=== PATIENT | male | born 1960 | race Caucasian/White ===

== ENCOUNTER → 2016-08-11 | Outpatient (CLI) | payer OTHER ==
[~2016-08-11] MED LIST: ALPRAZOLAM0.5 M3 PO; AMIODARONE HCL200 MG PO; AMIODARONE200 MG PO; AMOX TR-K CLV 875-12; ANAPROX DS550 MG PO; ANTIVERT/2525 MG PO; ASCRIPTIN ENTER81 MG PO; ASPI-COR81 MG PO; ASPIR 8181 MG PO; ASPIRIN325 MG PO; ASPIRIN81 M1 PO; B COMPLEX1 CAP PO; B COMPLEX1 TA2 PO; B12100 MC1; CATALYN; CLONAZEPAM0.5 MG PO; COLACE100 MG PO; COUMADIN0.5 MG PO; CREON 60,000U/1 CAP PO; Cimetidine300 MG PO; EMPIRIN325 MG PO; ESOMEPRAZOLE MA20 MG PO; FLEXERIL5 MG PO; FUROSEMIDE40 MG PO; HEPARIN5000 UNIT/ SC; HYDROCODONE BIT1 T11 PO; KEFTAB500 MG PO; KELP PO; KLONOPIN0.5 MG PO; LUTEIN20 M1 PO; METOPROLOL SUC100 M1 PO; METOPROLOL SUCC50 M1 PO; MIRTAZAPINE30 MG PO; MOTRIN800 MG PO; MULTIVITAMIN; MULTIVITAMIN1 CTB PO; NEXIUM40 MG PO; NORCO 325 MG-51 TAB PO; OMEPRAZOLE DR20 M1 PO; OMEPRAZOLE DR20 MG PO; PRISTIQ50 MG PO; SEROQUEL100 MG PO; SIMVASTATIN20 MG PO; Senokot1 TAB PO; TOPROL XL100 MG PO; TRAZADONE HYDR100 MG PO; VICODIN 5/500 505 MG PO; VICODIN 500 MG-1 TAB PO; VITAMIN B12100 MCG PO; VITAMIN B121000 MC2 PO; VITAMIN D; VITAMIN D5000 I2 PO; ZOLPIDEM5 MG PO; [UNRECOGNIZED DRUG - OTHER] PO
[2016-08-12 06:37] LABS: TOTAL PROTEIN, SERUM 6.1 g/dL (6.0-8.5)
[2016-08-13 15:10] LABS: A/G RATIO 1.4 (0.7-1.7); ALBUMIN 3.6 g/dL (2.9-4.4); ALBUMIN, URINE 13.8 % (.); ALPHA-1-GLOBULIN 0.2 g/dL (0.0-0.4); BETA GLOBULIN 0.9 g/dL (0.7-1.3); GAMMA GLOBULIN 0.8 g/dL (0.4-1.8); GAMMA GLOBULIN, URINE 25.5 % (.); GLOBULIN, TOTAL 2.5 g/dL (2.2-3.9); M-SPIKE Not Observed g/dL (Not Observed); M-SPIKE, % Not Observed % (Not Observed); PROTEIN,TOTAL - URINE RANDOM <4.0 mg/dL (Not Estab.)
== END | disposition home or self-care (01) ==
LOC: LAB 10:18
PROVIDERS: Internal Medicine Hematology & Oncology
DX: D69.6 Thrombocytopenia, unspecified (principal)

== ENCOUNTER 2016-10-19 12:26 | Inpatient (IN) | payer OTHER ==
[~2016-10-19] VITALS: Ht 185.4 cm; Wt 139.8 kg
[2016-10-19 12:41] VITALS: BP 112/58
[2016-10-19 12:50] VITALS: BP 105/62
[2016-10-19 13:08] LABS: BASO % 0.3 % (0.0-1.0); EOS # 0.1 10*3/uL (0.0-0.4); EOS % 2.1 % (1.0-4.0); HEMATOCRIT 41.3 % (42.0-52.0); HEMOGLOBIN 13.9 g/dl (14.0-18.0); LYMPH # 0.9 10*3/uL (1.3-4.4); LYMPH % 15.4 % (27.0-41.0); MEAN CORPUSCULAR HGB 31.3 pg (27.0-31.0); MEAN CORPUSCULAR HGB CONC 33.7 g/dl (33.0-37.0); MEAN PLATELET VOLUME 10.9 fl (9.6-12.3); MONO # 0.3 10*3/uL (0.1-1.0); MONO % 5.6 % (3.0-9.0); NEUT # 4.4 10*3/uL (2.3-7.9); NEUT % 75.9 % (47.0-73.0); PLATELET COUNT AUTOMATED 123 10*3/uL (130-400); RED BLOOD COUNT 4.44 10*6/uL (4.50-5.90); RED CELL DISTRI WIDTH 12.7 % (0-14.5); WHITE BLOOD COUNT 5.7 10*3/uL (4.8-10.8)
[2016-10-19 13:17] LABS: PROTHROMBIN TIME 10.1 SECONDS (9.0-12.4)
[2016-10-19 13:24] LABS: ALBUMIN 3.3 gm/dl (3.1-4.5); ALKALINE PHOSPHATASE 48 U/L (45-117); BILIRUBIN, TOTAL 0.5 mg/dl (0.2-1.0); BUN 26 mg/dl (7-24); C-REACTIVE PROTEIN 0.41 MG/DL (0-0.3); CARBON DIOXIDE 25 mmol/L (21-32); CHLORIDE 110 mmol/L (98-107); CPK 126 U/L (39-308); EST GLOM FILT AFRICAN AMERICAN > 60 ml/min; GLUCOSE 126 mg/dL (65-99); MAGNESIUM 1.9 mg/dL (1.5-2.1); SGOT/AST 12 IU/L (3-35); SGPT/ALT 20 U/L (12-78); SODIUM 142 mmol/L (136-145)
[2016-10-19 13:33] VITALS: BP 106/61
[2016-10-19 13:43] LABS: CKMB 5.7 ng/ml (0.5-3.6); TROPONIN I < 0.015 ng/ml (<0.045)
[2016-10-19 16:15] VITALS: BP 124/77
[2016-10-19] MEDS ORDERED: POTASSIUM CHLO20 ME3 PO (16:44)
[2016-10-19] MEDS ORDERED: CREON 3000 PO (17:12)
[2016-10-19] MEDS ORDERED: CREON 120000 U-1 ECC PO (18:02)
[2016-10-19 18:14] LABS: BILIRUBIN NEGATIVE (NEGATIVE); BLOOD NEGATIVE (NEGATIVE); CLARITY SL CLOUDY (CLEAR); COLOR YELLOW (YELLOW); GLUCOSE NEGATIVE (NEGATIVE); KETONE NEGATIVE (NEGATIVE); LEUKO ESTERASE NEGATIVE (NEGATIVE); NITRITE NEGATIVE (NEGATIVE); PH 5.5 (5.0-9.0); PROTEIN NEGATIVE (NEGATIVE); SPECIFIC GRAVITY 1.015 (1.005-1.030)
[2016-10-19 18:19] LABS: BACTERIA 1+; EPITHELIAL CELLS 0-2; URINE REFLEX COMMENT NO (NO); WBC 0-2 wbc/hpf (0-5)
[2016-10-19 20:00] VITALS: BP 117/74
[2016-10-19] MEDS ORDERED: XANAX1 MG PO (21:50)
[2016-10-19] MEDS ORDERED: XANAX0.5 MG PO (21:50)
[2016-10-20] VITALS: BP 115/62
[2016-10-20 07:29] LABS: BASO % 0.2 % (0.0-1.0); EOS # 0.1 10*3/uL (0.0-0.4); EOS % 2.9 % (1.0-4.0); HEMATOCRIT 40.4 % (42.0-52.0); HEMOGLOBIN 13.5 g/dl (14.0-18.0); LYMPH # 0.7 10*3/uL (1.3-4.4); LYMPH % 15.1 % (27.0-41.0); MEAN CELL VOLUME 95.7 fl (80.0-94.0); MEAN CORPUSCULAR HGB CONC 33.4 g/dl (33.0-37.0); MEAN PLATELET VOLUME 10.9 fl (9.6-12.3); MONO # 0.3 10*3/uL (0.1-1.0); MONO % 7.2 % (3.0-9.0); NEUT # 3.3 10*3/uL (2.3-7.9); NEUT % 74.4 % (47.0-73.0); PLATELET COUNT AUTOMATED 101 10*3/uL (130-400); RED BLOOD COUNT 4.22 10*6/uL (4.50-5.90); RED CELL DISTRI WIDTH 12.7 % (0-14.5); WHITE BLOOD COUNT 4.4 10*3/uL (4.8-10.8)
[2016-10-20 07:38] LABS: BUN 20 mg/dl (7-24); CARBON DIOXIDE 29 mmol/L (21-32); CHLORIDE 111 mmol/L (98-107); EST GLOM FILT AFRICAN AMERICAN > 60 ml/min; GLUCOSE 119 mg/dL (65-99); SODIUM 145 mmol/L (136-145)
[2016-10-20 08:00] VITALS: BP 160/64
[2016-10-20 12:00] VITALS: BP 122/73
[2016-10-20 16:00] VITALS: BP 132/80
[2016-10-20 20:00] VITALS: BP 130/68
[2016-10-21] VITALS: BP 134/64
[2016-10-21] MEDS ORDERED: CREON 120000 U-1 ECC PO (06:36)
[2016-10-21 08:00] VITALS: BP 116/54
== END 2016-10-21 14:05 | disposition home or self-care (01) | DRG 312 ==
LOC: ED 12:26 → 4E 14:57 → EDHOLD 14:57 → 4E 15:42
PROVIDERS: Emergency Medicine; Internal Medicine
DX: R55 Syncope and collapse (principal); K86.1 Other chronic pancreatitis; I10 Essential (primary) hypertension; K90.9 Intestinal malabsorption, unspecified; R19.7 Diarrhea, unspecified; G89.29 Other chronic pain; M54.9 Dorsalgia, unspecified; R00.8 Other abnormalities of heart beat; I49.8 Other specified cardiac arrhythmias; E78.5 Hyperlipidemia, unspecified; E86.0 Dehydration; R42 Dizziness and giddiness; Z84.1 Family history of disorders of kidney and ureter

== ENCOUNTER → 2016-11-07 | Outpatient (CLI) | payer OTHER ==
[~2016-11-07] MED LIST changes: +CREON 120000 U-1 ECC PO; +CREON 3000 PO; +POTASSIUM CHLO20 ME3 PO; +XANAX0.5 MG PO; +XANAX1 MG PO
== END | disposition home or self-care (01) ==
LOC: MRI 07:54
DX: M48.06 Spinal stenosis, lumbar region (principal)

== ENCOUNTER → 2016-11-14 | Outpatient (CLI) | payer OTHER ==
[2016-11-14 10:52] LABS: BASO % 0.2 % (0.0-1.0); EOS # 0.1 10*3/uL (0.0-0.4); EOS % 2.7 % (1.0-4.0); HEMATOCRIT 44.2 % (42.0-52.0); HEMOGLOBIN 14.6 g/dl (14.0-18.0); LYMPH # 0.8 10*3/uL (1.3-4.4); MEAN CELL VOLUME 95.9 fl (80.0-94.0); MEAN CORPUSCULAR HGB 31.7 pg (27.0-31.0); MEAN PLATELET VOLUME 10.6 fl (9.6-12.3); MONO # 0.3 10*3/uL (0.1-1.0); MONO % 6.3 % (3.0-9.0); NEUT # 3.5 10*3/uL (2.3-7.9); NEUT % 73.6 % (47.0-73.0); PLATELET COUNT AUTOMATED 131 10*3/uL (130-400); RED BLOOD COUNT 4.61 10*6/uL (4.50-5.90); RED CELL DISTRI WIDTH 12.6 % (0-14.5); WHITE BLOOD COUNT 4.8 10*3/uL (4.8-10.8)
[2016-11-14 11:26] LABS: ALBUMIN 3.4 gm/dl (3.1-4.5); ALKALINE PHOSPHATASE 52 U/L (45-117); BILIRUBIN, TOTAL 0.7 mg/dl (0.2-1.0); BUN 19 mg/dl (7-24); CARBON DIOXIDE 32 mmol/L (21-32); CHLORIDE 109 mmol/L (98-107); EST GLOM FILT AFRICAN AMERICAN > 60 ml/min; GLUCOSE 95 mg/dL (65-99); POTASSIUM 4.6 mmol/L (3.5-5.1); SGOT/AST 11 IU/L (3-35); SGPT/ALT 18 U/L (12-78); SODIUM 144 mmol/L (136-145); TOTAL PROTEIN 6.3 gm/dL (6.4-8.2)
== END | disposition home or self-care (01) ==
LOC: LAB 10:30
PROVIDERS: Urology
DX: I10 Essential (primary) hypertension (principal); K85.90 Acute pancreatitis without necrosis or infection, unspecified

== ENCOUNTER → 2016-11-21 | Outpatient (CLI) | payer OTHER | LOC: US 06:06 | DX: K85.90 Acute pancreatitis without necrosis or infection, unspecified (principal); R10.9 Unspecified abdominal pain ==

== ENCOUNTER → 2016-11-28 | Outpatient (CLI) | payer OTHER | END | disposition home or self-care (01) | LOC: LAB 11:13 | DX: D40.0 Neoplasm of uncertain behavior of prostate (principal) ==

== ENCOUNTER 2017-04-28 17:15 | Emergency (ER) | payer OTHER ==
[~2017-04-28] VITALS: Wt 140.6 kg
[2017-04-28 18:19] LABS: BASO % 0.5 % (0.0-1.0); EOS # 0.1 10*3/uL (0.0-0.4); EOS % 1.3 % (1.0-4.0); HEMATOCRIT 44.2 % (42.0-52.0); LYMPH # 0.3 10*3/uL (1.3-4.4); LYMPH % 8.8 % (27.0-41.0); MEAN CELL VOLUME 92.7 fl (80.0-94.0); MEAN CORPUSCULAR HGB 31.4 pg (27.0-31.0); MEAN CORPUSCULAR HGB CONC 33.9 g/dl (33.0-37.0); MEAN PLATELET VOLUME 11.6 fl (9.6-12.3); MONO # 0.5 10*3/uL (0.1-1.0); MONO % 11.7 % (3.0-9.0); NEUT % 77.2 % (47.0-73.0); PLATELET COUNT AUTOMATED 92 10*3/uL (130-400); RED BLOOD COUNT 4.77 10*6/uL (4.50-5.90); RED CELL DISTRI WIDTH 12.7 % (0-14.5); WHITE BLOOD COUNT 3.9 10*3/uL (4.8-10.8)
[2017-04-28 18:36] LABS: ALBUMIN 3.7 gm/dl (3.1-4.5); ALKALINE PHOSPHATASE 64 U/L (45-117); BUN 12 mg/dl (7-24); CHLORIDE 104 mmol/L (98-107); CREATININE 0.97 mg/dL (0.70-1.30); LIPASE 106 U/L (73-393); SGOT/AST 18 IU/L (3-35); SGPT/ALT 21 U/L (12-78); SODIUM 140 mmol/L (136-145)
[2017-04-28 18:37] LABS: TROPONIN I < 0.015 ng/ml (<0.045)
[2017-04-28] MEDS ORDERED: TAMIFLU 75MG CA75 MG PO (18:44)
[2017-04-28] MEDS ORDERED: CLARITIN10 MG PO (18:44)
[2017-04-28] MEDS ORDERED: ZOFRAN4 MG PO (18:44)
[2017-04-28] MEDS ORDERED: ROBITUSSIN DM 105 ML PO (18:44)
[2017-04-28 19:37] VITALS: BP 124/62
== END 2017-04-28 19:45 | disposition home or self-care (01) ==
LOC: ED 17:15
PROVIDERS: Nurse Practitioner Family
DX: J09.X2 Influenza due to identified novel influenza A virus with other respiratory manifestations (principal); R03.0 Elevated blood-pressure reading, without diagnosis of hypertension; G89.29 Other chronic pain; Z98.890 Other specified postprocedural states; Z79.82 Long term (current) use of aspirin; Z79.899 Other long term (current) drug therapy

== ENCOUNTER → 2017-05-08 | Outpatient (CLI) | payer OTHER ==
[~2017-05-08] MED LIST changes: +CLARITIN10 MG PO; +ROBITUSSIN DM 105 ML PO; +TAMIFLU 75MG CA75 MG PO; +ZOFRAN4 MG PO
== END | disposition home or self-care (01) ==
LOC: CT 12:46
DX: K57.30 Diverticulosis of large intestine without perforation or abscess without bleeding (principal); G95.89 Other specified diseases of spinal cord

== ENCOUNTER → 2017-08-28 | Outpatient (CLI) | payer OTHER ==
[~2017-08-28] MED LIST changes: +CYMBALTA20 M1 PO; +NEURONTIN300 MG PO; +NORCO 5-325 TA1 EACH PO; +ROPINIROLE HYD0.5 MG PO
--- NOTE | ~2017-08-28 | ST ---
[place], [place] EXERCISE STRESS TEST REPORT NAME: JESÚS ARMSTRONG UNIT #: [id number] ROOM: DOCTOR: LINDA HUTCHISON MD BIRTHDATE: [birth year] DOS: 08/28/2017 REASON FOR TESTING: Evaluation preop. After explaining the procedure, the patient was subjected to Lexiscan infusion. His resting heart rate was 71, blood pressure 110/80. EKG showed sinus rhythm with frequent PVCs. During the Lexiscan infusion, the patient did not have any complaints. He continued to have PVCs, bigeminy during the infusion. He did not have any chest pains or shortness of breath. After the infusion was over, he was injected with Cardiolite and stress images were taken. ASSESSMENT AND PLAN: Lexiscan stress test without any ST-T wave changes. Awaiting Cardiolite images. LINDA HUTCHISON MD CM:STRESS:EXERCISE STRESS TEST REPORT [id number] LINDA HUTCHISON MD
== END | disposition home or self-care (01) ==
LOC: CARD 00:16
DX: Z01.818 Encounter for other preprocedural examination (principal); R06.02 Shortness of breath; R94.39 Abnormal result of other cardiovascular function study; R94.31 Abnormal electrocardiogram [ECG] [EKG]

== ENCOUNTER → 2017-09-05 | Outpatient (CLI) | payer OTHER | END | disposition home or self-care (01) | LOC: MRI 11:00 | DX: M47.896 Other spondylosis, lumbar region (principal); M43.16 Spondylolisthesis, lumbar region; M48.061 Spinal stenosis, lumbar region without neurogenic claudication ==

== ENCOUNTER → 2017-09-10 | Outpatient (CLI) | payer OTHER | END | disposition home or self-care (01) | LOC: CARD 07:38 | DX: Z01.818 Encounter for other preprocedural examination (principal); I49.3 Ventricular premature depolarization; I51.7 Cardiomegaly ==

== ENCOUNTER → 2018-08-19 | Outpatient (CLI) | payer OTHER ==
[~2018-08-19] MED LIST changes: +BUSPAR15 MG PO; +COREG6.25 MG PO; +COZAAR50 M1 PO; +CREON DR 3,0001 EACH PO; +CYCLOBENZAPRINE10 MG PO; +LASIX20 MG PO; +LASIX40 MG PO; +Lopressor25 MG PO; +Motrin,Rufen800 MG PO; +SIMVASTATIN10 MG PO; +TRAZODONE HYDR300 MG PO
[2018-08-19 10:14] LABS: BILIRUBIN NEGATIVE (NEGATIVE); BLOOD NEGATIVE (NEGATIVE); CLARITY SL CLOUDY (CLEAR); COLOR YELLOW (YELLOW); GLUCOSE NEGATIVE (NEGATIVE); KETONE TRACE (NEGATIVE); LEUKO ESTERASE NEGATIVE (NEGATIVE); NITRITE NEGATIVE (NEGATIVE); PH 5.5 (5.0-9.0); SPECIFIC GRAVITY 1.025 (1.005-1.030); UROBILINOGEN 0.2 E.U./dl (0.2-1.0)
[2018-08-19 10:16] LABS: BASO % 0.6 % (0.0-1.0); EOS # 0.3 10*3/uL (0.0-0.4); EOS % 4.7 % (1.0-4.0); HEMATOCRIT 45.3 % (42.0-52.0); HEMOGLOBIN 14.9 g/dl (14.0-18.0); LYMPH # 1.3 10*3/uL (1.3-4.4); LYMPH % 20.9 % (27.0-41.0); MEAN CELL VOLUME 96.8 fl (80.0-94.0); MEAN CORPUSCULAR HGB 31.8 pg (27.0-31.0); MEAN CORPUSCULAR HGB CONC 32.9 g/dl (33.0-37.0); MEAN PLATELET VOLUME 10.8 fl (9.6-12.3); MONO # 0.4 10*3/uL (0.1-1.0); MONO % 6.8 % (3.0-9.0); NEUT # 4.2 10*3/uL (2.3-7.9); NEUT % 65.7 % (47.0-73.0); PLATELET COUNT AUTOMATED 155 10*3/uL (130-400); RED BLOOD COUNT 4.68 10*6/uL (4.50-5.90); RED CELL DISTRI WIDTH 12.9 % (0-14.5); WHITE BLOOD COUNT 6.3 10*3/uL (4.8-10.8)
[2018-08-19 10:21] LABS: BACTERIA 1+; MUCOUS 1+
[2018-08-19 10:41] LABS: ALBUMIN 3.6 gm/dl (3.1-4.5); BUN 14 mg/dl (7-24); CHLORIDE 106 mmol/L (98-107); CREATININE 0.87 mg/dL (0.70-1.30); POTASSIUM 3.9 mmol/L (3.5-5.1); SGOT/AST 14 IU/L (3-35); SGPT/ALT 30 U/L (12-78); SODIUM 142 mmol/L (136-145); THYROXINE (T4) TOTAL 7.6 ug/dl (4.5-12.1); TOTAL PROTEIN 6.5 gm/dL (6.4-8.2)
[2018-08-19 10:50] LABS: ALKALINE PHOSPHATASE 68 U/L (45-117); T3 UPTAKE 30 % (31-39)
[2018-08-20 07:10] LABS: FOLLICLE STIMULATING HORMONE 14.7 mIU/mL (1.5-12.4); LUTEINIZING HORMONE 004283 7.8 mIU/mL (1.7-8.6); PROGESTERONE 004317 <0.1 ng/mL (0.0-0.5); PROLACTIN 004465 13.8 ng/mL (4.0-15.2)
== END | disposition home or self-care (01) ==
LOC: CT 08-15 09:00 → LAB 09:35 → CT 10:00
PROVIDERS: Urology
DX: Z12.5 Encounter for screening for malignant neoplasm of prostate (principal); N50.89 Other specified disorders of the male genital organs; R31.9 Hematuria, unspecified; R53.83 Other fatigue; D40.0 Neoplasm of uncertain behavior of prostate; R30.0 Dysuria; K85.90 Acute pancreatitis without necrosis or infection, unspecified; K57.30 Diverticulosis of large intestine without perforation or abscess without bleeding; K76.0 Fatty (change of) liver, not elsewhere classified; Z90.49 Acquired absence of other specified parts of digestive tract

== ENCOUNTER → 2018-10-01 | Outpatient (CLI) | payer OTHER | END | disposition home or self-care (01) | LOC: CARD 09-25 14:00 | DX: I35.8 Other nonrheumatic aortic valve disorders (principal) ==

== ENCOUNTER 2018-10-13 18:15 | Inpatient (IN) | payer OTHER ==
[~2018-10-13] VITALS: Ht 185.4 cm; Wt 172.5 kg
[2018-10-13] VITALS (10 sets, daily range): BP systolic 96–153; BP diastolic 57–96
--- NOTE | ~2018-10-13 | EKG ---
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
--- NOTE | ~2018-10-13 | WRIGHTHP ---
[place], [place] PATIENT HISTORY AND PHYSICAL EXAM NAME: JESÚS ARMSTRONG UNIT #: [id number] ROOM: [facility] DOCTOR: LINDA HUTCHISON MD BIRTHDATE: [birth year] DOS: HISTORY OF PRESENT ILLNESS: The patient is 57 years old. He comes in with complaints of shortness of breath and palpitations. The patient says he was resting comfortably on his couch when he knew that the heart was beating too fast. He decided to come into the Emergency Room, was found to be in flutter and he was admitted. During the night, he had a few nonsustained runs of V-tach and was admitted to the ICU. He this morning does not have any complaints of chest pains or palpitations. He denies having any shortness of breath, palpitations, much improved. The patient has had some increased shortness of breath recently and an echocardiogram was done. The echocardiogram showed severe LV dysfunction. He also underwent a stress test on 09/17/2018, which did not show any reversible perfusion defects, but global hypokinesis was also seen with an ejection fraction of 47% on gated images. PAST MEDICAL HISTORY: Significant for: 1. History of chronic pancreatitis. 2. Chronic ventricular dysrhythmias. 3. Chronic low back pain with spinal stenosis, radiculopathy. 4. Benign hypertension. 5. Generalized anxiety disorder. 6. History of pancreatic abscess 2012, history of nonsustained V-tach, status post ablation, history of bronchial asthma, morbid obesity. MEDICATIONS: Medications that he is currently on are BuSpar 15 mg half a tablet twice a day, Creon 3000 units with each meal, Coreg 6.25 twice a day, cyclobenzaprine 10 daily, duloxetine 60 daily, Lasix 40 daily, gabapentin 300 b.i.d., [place] 5 q. 4 hours, losartan 50 at bedtime, Requip 0.1 mg at bedtime, simvastatin 10 at bedtime, trazodone 50 daily. SOCIAL HISTORY: Nonsmoker and does not use any alcohol. He lives at home with his . He has 2 grown children. PHYSICAL EXAMINATION: GENERAL: He is awake, alert, and oriented. Heart rate in the 60s-70s, currently atrial flutter, on IV Cardizem. VITAL SIGNS: Blood pressure 104/64, respirations 14, temperature 97.6. LUNGS: Diminished breath sounds. No wheezes, rales, or rhonchi heard. HEART: Irregular. ABDOMEN: Obese, soft. EXTREMITIES: Trace edema bilaterally. LABORATORY DATA: White cell count 9.4, hemoglobin 15.1, hematocrit 45.2. Lactic acid 2.4. C-reactive protein 0.97. Chest x-ray showed no acute process. Lactic acid was 2.4. Comprehensive blood sugar of 143. BUN and creatinine within normal limits. ASSESSMENT AND PLAN: 1. Palpitations with evidence of new onset atrial fibrillation with rapid ventricular response. The patient is placed on IV Cardizem for rate control. [place], [place] PATIENT HISTORY AND PHYSICAL EXAM NAME: [id number] UNIT #: [id number] ROOM: [facility] DOCTOR: LINDA HUTCHISON MD BIRTHDATE: [birth year] He is already on beta blockers and Eliquis was added. 2. Benign hypertension, controlled. 3. LV dysfunction with a negative stress test last month. Awaiting Cardiology opinion. 4. Chronic pancreatitis. Continue Creon. 5. Generalized anxiety disorder, on BuSpar, stable. 6. Chronic back pain from spinal stenosis. Continue long-term opiates. LINDA HUTCHISON MD CM:HISPHYS:PATIENT HISTORY AND PHYSICAL EXAMINATION 5 LINDA HUTCHISON MD 10/14/18 0849 interface
--- NOTE | ~2018-10-13 | EKG ---
[place], [place] ELECTROCARDIOGRAM REPORT NAME: JESÚS ARMSTRONG UNIT #: [id number] ROOM: [facility] DOCTOR: STEPHANIE DRAFT REPORT BIRTHDATE: [birth year] [facility] Test Date: 2018-10-13 Test Time: 21:15:16 Pat Name: JESÚS ARMSTRONG Department: Room: [facility] Gender: M [place]: : 1960 Requested By: WILLIS JOYCE Order Number: [id number] Reading MD: Kelton Valdez MD Measurements Intervals [place] Rate: 108 P: [place]: QRS: -1 QRSD: 91 T: 9 QT: 423 QTc: 567 Interpretive Statements Atrial fibrillation Paired ventricular premature complexes RSR' in V1 or V2, probably normal variant Probable inferior infarct, acute Electronically Signed On 10-15-2018 5:53:36 PDT by Kelton Valdez MD CM:EKGRPT:ELECTROCARDIOGRAM REPORT [id number] WILLIS BROWN DRAFT REPORT WILLIS JOYCE
--- NOTE | ~2018-10-13 | EKG ---
[place], [place] ELECTROCARDIOGRAM REPORT NAME: JESÚS ARMSTRONG UNIT #: [id number] ROOM: [facility] DOCTOR: STEPHANIE DRAFT REPORT BIRTHDATE: [birth year] [facility] Test Date: 2018-10-14 Test Time: 00:18:06 Pat Name: JESÚS ARMSTRONG Department: Room: [facility] Gender: M Crnp: Jennifer Gruber : 1960 Requested By: WILLIS JOYCE Order Number: [id number] Reading MD: Kelton Valdez MD Measurements Intervals [place] Rate: 95 P: [place]: QRS: 3 QRSD: 91 T: 104 QT: 360 QTc: 453 Interpretive Statements Atrial fibrillation Ventricular bigeminy Borderline repolarization abnormality Electronically Signed On 10-15-2018 5:56:50 PDT by Kelton Valdez MD CM:EKGRPT:ELECTROCARDIOGRAM REPORT [id number] WILLIS BROWN DRAFT REPORT WILLIS JOYCE
[~2018-10-13 18:15] MED LIST changes: -COREG6.25 MG PO; -COZAAR50 M1 PO; -LASIX20 MG PO; -LASIX40 MG PO; -SIMVASTATIN10 MG PO
[2018-10-13 18:38] LABS: BASO % 0.4 % (0.0-1.0); EOS # 0.2 10*3/uL (0.0-0.4); EOS % 1.9 % (1.0-4.0); HEMATOCRIT 45.2 % (42.0-52.0); HEMOGLOBIN 15.1 g/dl (14.0-18.0); LYMPH # 1.3 10*3/uL (1.3-4.4); LYMPH % 13.7 % (27.0-41.0); MEAN CELL VOLUME 96.4 fl (80.0-94.0); MEAN CORPUSCULAR HGB 32.2 pg (27.0-31.0); MEAN CORPUSCULAR HGB CONC 33.4 g/dl (33.0-37.0); MEAN PLATELET VOLUME 10.9 fl (9.6-12.3); MONO # 0.7 10*3/uL (0.1-1.0); MONO % 7.3 % (3.0-9.0); NEUT # 7.1 10*3/uL (2.3-7.9); NEUT % 76.1 % (47.0-73.0); PLATELET COUNT AUTOMATED 190 10*3/uL (130-400); RED BLOOD COUNT 4.69 10*6/uL (4.50-5.90); RED CELL DISTRI WIDTH 13.2 % (0-14.5); WHITE BLOOD COUNT 9.4 10*3/uL (4.8-10.8)
[2018-10-13 18:49] LABS: ACT PARTIAL THROMBO TIME 23.3 SECONDS (20.0-32.1); INTERNATIONAL NORM RATIO 0.9 (2.0-3.5)
[2018-10-13 18:56] LABS: ALBUMIN 3.8 gm/dl (3.1-4.5); ALKALINE PHOSPHATASE 82 U/L (45-117); BUN 14 mg/dl (7-24); CHLORIDE 109 mmol/L (98-107); CREATININE 0.92 mg/dL (0.70-1.30); POTASSIUM 4.3 mmol/L (3.5-5.1); SGOT/AST 25 IU/L (3-35); SGPT/ALT 43 U/L (12-78); SODIUM 142 mmol/L (136-145); TOTAL PROTEIN 7.3 gm/dL (6.4-8.2)
[2018-10-13 18:57] LABS: TROPONIN I 0.017 ng/ml (<0.045)
[2018-10-13] MEDS ORDERED: SIMVASTATIN10 MG PO (23:43)
[2018-10-13] MEDS ORDERED: COZAAR50 M1 PO (23:45)
[2018-10-13] MEDS ORDERED: COREG6.25 MG PO (23:46)
[2018-10-13] MEDS ORDERED: LASIX20 MG PO (23:47)
[2018-10-13] MEDS ORDERED: LASIX40 MG PO (23:47)
[2018-10-13] MEDS ORDERED: CREON 3000 PO (23:51)
[2018-10-14] VITALS: BP 110/70
[2018-10-14 02:00] VITALS: BP 103/62
[2018-10-14 04:00] VITALS: BP 107/46
[2018-10-14 06:00] VITALS: BP 99/63
[2018-10-14 07:58] VITALS: BP 104/64
[2018-10-14 08:00] VITALS: BP 110/60
[2018-10-14 10:31] LABS: CHOLESTEROL 122 mg/dL (<200); HDL CHOLESTEROL 39 mg/dl (40-60); LDL CHOLESTEROL 51 mg/dL (9-159); TRIGLYCERIDES 161 mg/dl (<150); VLDL CHOLESTEROL 32 mg/dL (6-40)
== END 2018-10-14 10:37 | disposition short-term general hospital (02) | DRG 313 ==
LOC: ED 18:15 → EDHOLD 19:13 → 4E 19:13 → ICCU 19:13 → 4E 19:38 → ICCU 22:54
PROVIDERS: Internal Medicine Cardiovascular Disease; Nurse Practitioner Family; Surgery; ADMIT Internal Medicine
DX: R07.89 Other chest pain (principal); I48.1 Persistent atrial fibrillation; K86.1 Other chronic pancreatitis; Z68.43 Body mass index [BMI] 50.0-59.9, adult; I47.2 Ventricular tachycardia; I48.91 Unspecified atrial fibrillation; I10 Essential (primary) hypertension; G89.29 Other chronic pain; M48.00 Spinal stenosis, site unspecified; F41.1 Generalized anxiety disorder; J45.909 Unspecified asthma, uncomplicated; K21.9 Gastro-esophageal reflux disease without esophagitis; E78.5 Hyperlipidemia, unspecified; E66.01 Morbid (severe) obesity due to excess calories; Z86.718 Personal history of other venous thrombosis and embolism; Z90.49 Acquired absence of other specified parts of digestive tract; Z82.49 Family history of ischemic heart disease and other diseases of the circulatory system; Z84.1 Family history of disorders of kidney and ureter; Z83.79 Family history of other diseases of the digestive system; Z82.5 Family history of asthma and other chronic lower respiratory diseases; Z83.3 Family history of diabetes mellitus; Z79.899 Other long term (current) drug therapy

== ENCOUNTER → 2019-10-27 | Outpatient (CLI) | payer OTHER ==
[~2019-10-27] MED LIST changes: +COREG6.25 MG PO; +COZAAR50 M1 PO; +LASIX20 MG PO; +LASIX40 MG PO; +SIMVASTATIN10 MG PO
[2019-10-27 14:33] LABS: BASO % 0.4 % (0.0-1.0); EOS # 0.1 10*3/uL (0.0-0.4); HEMATOCRIT 48.6 % (42.0-52.0); LYMPH # 1.4 10*3/uL (1.3-4.4); MEAN CELL VOLUME 93.8 fl (80.0-94.0); MEAN CORPUSCULAR HGB 31.3 pg (27.0-31.0); MEAN CORPUSCULAR HGB CONC 33.3 g/dl (33.0-37.0); MEAN PLATELET VOLUME 10.2 fl (9.6-12.3); MONO # 0.5 10*3/uL (0.1-1.0); MONO % 5.9 % (3.0-9.0); NEUT # 6.3 10*3/uL (2.3-7.9); NEUT % 75.1 % (47.0-73.0); PLATELET COUNT AUTOMATED 215 10*3/uL (130-400); RED BLOOD COUNT 5.18 10*6/uL (4.50-5.90); RED CELL DISTRI WIDTH 13.5 % (0-14.5); WHITE BLOOD COUNT 8.4 10*3/uL (4.8-10.8)
[2019-10-27 14:49] LABS: ALBUMIN 3.7 gm/dl (3.1-4.5); ALKALINE PHOSPHATASE 74 U/L (45-117); BUN 11 mg/dl (7-24); CHLORIDE 108 mmol/L (98-107); CHOLESTEROL 146 mg/dL (<200); CREATININE 1.02 mg/dL (0.70-1.30); FREE T4 1.05 ng/dl (0.76-1.46); HDL CHOLESTEROL 49 mg/dl (40-60); LDL CHOLESTEROL 75 mg/dL (9-159); POTASSIUM 4.2 mmol/L (3.5-5.1); SGOT/AST 10 IU/L (3-35); SGPT/ALT 22 U/L (12-78); SODIUM 141 mmol/L (136-145); TOTAL PROTEIN 7.2 gm/dL (6.4-8.2); TRIGLYCERIDES 112 mg/dl (<150); VLDL CHOLESTEROL 22 mg/dL (6-40)
[2019-10-27 14:53] LABS: THYROID STIM HORMONE (HS) 0.747 uIU/ml (0.358-4.75)
[2019-10-27 15:16] LABS: VITAMIN D, 25-HYDROXY 26.7 ng/mL (30-100)
== END | disposition home or self-care (01) ==
LOC: LAB 14:01
PROVIDERS: Internal Medicine
DX: Z12.5 Encounter for screening for malignant neoplasm of prostate (principal); E11.9 Type 2 diabetes mellitus without complications; R70.0 Elevated erythrocyte sedimentation rate; R53.81 Other malaise; M06.9 Rheumatoid arthritis, unspecified; R79.89 Other specified abnormal findings of blood chemistry; M54.06 Panniculitis affecting regions of neck and back, lumbar region; E55.9 Vitamin D deficiency, unspecified

== ENCOUNTER → 2020-02-05 | Outpatient (CLI) | payer OTHER ==
[2020-02-05 12:22] LABS: BASO % 0.5 % (0.0-1.0); EOS # 0.2 10*3/uL (0.0-0.4); EOS % 2.6 % (1.0-4.0); HEMATOCRIT 48.5 % (42.0-52.0); LYMPH # 1.7 10*3/uL (1.3-4.4); MEAN CELL VOLUME 93.6 fl (80.0-94.0); MEAN CORPUSCULAR HGB 30.7 pg (27.0-31.0); MEAN CORPUSCULAR HGB CONC 32.8 g/dl (33.0-37.0); MEAN PLATELET VOLUME 9.7 fl (9.6-12.3); MONO # 0.7 10*3/uL (0.1-1.0); MONO % 8.3 % (3.0-9.0); NEUT # 5.7 10*3/uL (2.3-7.9); PLATELET COUNT AUTOMATED 212 10*3/uL (130-400); RED BLOOD COUNT 5.18 10*6/uL (4.50-5.90); RED CELL DISTRI WIDTH 12.7 % (0-14.5); WHITE BLOOD COUNT 8.3 10*3/uL (4.8-10.8)
[2020-02-05 12:57] LABS: ALBUMIN 3.6 gm/dl (3.1-4.5); ALKALINE PHOSPHATASE 63 U/L (45-117); BUN 19 mg/dl (7-24); CHLORIDE 107 mmol/L (98-107); CHOLESTEROL 124 mg/dL (<200); CREATININE 1.08 mg/dL (0.70-1.30); FREE T4 0.94 ng/dl (0.76-1.46); HDL CHOLESTEROL 46 mg/dl (40-60); LDL CHOLESTEROL 59 mg/dL (9-159); POTASSIUM 4.3 mmol/L (3.5-5.1); SGOT/AST 9 IU/L (3-35); SGPT/ALT 19 U/L (12-78); SODIUM 143 mmol/L (136-145); TOTAL PROTEIN 7.1 gm/dL (6.4-8.2); TRIGLYCERIDES 94 mg/dl (<150); VLDL CHOLESTEROL 19 mg/dL (6-40)
[2020-02-05 13:21] LABS: VITAMIN D, 25-HYDROXY 47.9 ng/mL (30-100)
== END | disposition home or self-care (01) ==
LOC: LAB 11:13 → US 11:30
PROVIDERS: ATTEND Internal Medicine
DX: Z00.00 Encounter for general adult medical examination without abnormal findings (principal); I10 Essential (primary) hypertension; E11.9 Type 2 diabetes mellitus without complications; E55.9 Vitamin D deficiency, unspecified; I73.9 Peripheral vascular disease, unspecified; E78.2 Mixed hyperlipidemia

== ENCOUNTER 2020-06-25 19:38 | Emergency (ER) | payer OTHER ==
[2020-06-25 20:00] LABS: BASO % 0.4 % (0.0-1.0); EOS # 0.2 10*3/uL (0.0-0.4); EOS % 1.4 % (1.0-4.0); LYMPH # 1.5 10*3/uL (1.3-4.4); LYMPH % 13.8 % (27.0-41.0); MEAN CELL VOLUME 94.9 fl (80.0-94.0); MEAN CORPUSCULAR HGB 31.6 pg (27.0-31.0); MEAN CORPUSCULAR HGB CONC 33.3 g/dl (33.0-37.0); MEAN PLATELET VOLUME 10.2 fl (9.6-12.3); MONO # 0.8 10*3/uL (0.1-1.0); MONO % 7.3 % (3.0-9.0); NEUT # 8.1 10*3/uL (2.3-7.9); NEUT % 76.1 % (47.0-73.0); PLATELET COUNT AUTOMATED 194 10*3/uL (130-400); RED BLOOD COUNT 4.74 10*6/uL (4.50-5.90); RED CELL DISTRI WIDTH 12.7 % (0-14.5); WHITE BLOOD COUNT 10.7 10*3/uL (4.8-10.8)
[2020-06-25 20:18] LABS: ALBUMIN 3.6 gm/dl (3.1-4.5); ALKALINE PHOSPHATASE 77 U/L (45-117); BUN 12 mg/dl (7-24); CHLORIDE 109 mmol/L (98-107); CREATININE 0.93 mg/dL (0.70-1.30); SGOT/AST 6 IU/L (3-35); SGPT/ALT 24 U/L (12-78); SODIUM 142 mmol/L (136-145); TOTAL PROTEIN 7.2 gm/dL (6.4-8.2); TROPONIN I 0.017 ng/ml (<0.045)
[2020-06-26 11:04] VITALS: BP 134/87
== END 2020-06-26 12:18 | disposition short-term general hospital (02) ==
LOC: ED 19:38
PROVIDERS: Internal Medicine
DX: I48.20 Chronic atrial fibrillation, unspecified (principal); Z20.822 Contact with and (suspected) exposure to COVID-19; Z79.899 Other long term (current) drug therapy; Z98.890 Other specified postprocedural states; Z96.651 Presence of right artificial knee joint; Z90.49 Acquired absence of other specified parts of digestive tract

== ENCOUNTER → 2020-08-22 | Outpatient (CLI) | payer OTHER ==
[2020-08-22 12:53] LABS: BASO % 0.4 % (0.0-1.0); EOS # 0.3 10*3/uL (0.0-0.4); EOS % 3.9 % (1.0-4.0); HEMATOCRIT 45.5 % (42.0-52.0); LYMPH # 1.4 10*3/uL (1.3-4.4); LYMPH % 21.1 % (27.0-41.0); MEAN CELL VOLUME 93.6 fl (80.0-94.0); MEAN CORPUSCULAR HGB 31.3 pg (27.0-31.0); MEAN CORPUSCULAR HGB CONC 33.4 g/dl (33.0-37.0); MEAN PLATELET VOLUME 10.4 fl (9.6-12.3); MONO # 0.6 10*3/uL (0.1-1.0); MONO % 8.3 % (3.0-9.0); NEUT # 4.4 10*3/uL (2.3-7.9); NEUT % 65.7 % (47.0-73.0); PLATELET COUNT AUTOMATED 202 10*3/uL (130-400); RED BLOOD COUNT 4.86 10*6/uL (4.50-5.90); RED CELL DISTRI WIDTH 12.9 % (0-14.5); WHITE BLOOD COUNT 6.7 10*3/uL (4.8-10.8)
[2020-08-22 13:11] LABS: ALBUMIN 3.3 gm/dl (3.1-4.5); ALKALINE PHOSPHATASE 67 U/L (45-117); BUN 15 mg/dl (7-24); CHLORIDE 108 mmol/L (98-107); CHOLESTEROL 126 mg/dL (<200); CREATININE 0.96 mg/dL (0.70-1.30); SGOT/AST 10 IU/L (3-35); SGPT/ALT 19 U/L (12-78); SODIUM 141 mmol/L (136-145); TOTAL PROTEIN 6.9 gm/dL (6.4-8.2); TRIGLYCERIDES 162 mg/dl (<150)
[2020-08-22 13:18] LABS: FREE T4 1.01 ng/dl (0.76-1.46); LDL CHOLESTEROL 54 mg/dL (9-159)
[2020-08-22 13:28] LABS: VITAMIN D, 25-HYDROXY 42.3 ng/mL (30-100)
== END | disposition home or self-care (01) ==
LOC: LAB 12:23
PROVIDERS: ATTEND Internal Medicine
DX: Z12.5 Encounter for screening for malignant neoplasm of prostate (principal); I10 Essential (primary) hypertension; E78.2 Mixed hyperlipidemia; E11.9 Type 2 diabetes mellitus without complications; E55.9 Vitamin D deficiency, unspecified; Z00.01 Encounter for general adult medical examination with abnormal findings

== ENCOUNTER → 2021-02-08 | Outpatient (CLI) | payer OTHER ==
[2021-02-08 08:19] LABS: BASO # 0.1 10*3/uL (0.0-0.1); BASO % 0.8 % (0.0-1.0); EOS # 0.2 10*3/uL (0.0-0.4); EOS % 3.7 % (1.0-4.0); HEMATOCRIT 45.7 % (42.0-52.0); LYMPH % 16.5 % (27.0-41.0); MEAN CELL VOLUME 97.4 fl (80.0-94.0); MEAN CORPUSCULAR HGB 32.4 pg (27.0-31.0); MEAN CORPUSCULAR HGB CONC 33.3 g/dl (33.0-37.0); MEAN PLATELET VOLUME 10.7 fl (9.6-12.3); MONO # 0.5 10*3/uL (0.1-1.0); MONO % 7.2 % (3.0-9.0); NEUT # 4.5 10*3/uL (2.3-7.9); PLATELET COUNT AUTOMATED 170 10*3/uL (130-400); RED BLOOD COUNT 4.69 10*6/uL (4.50-5.90); WHITE BLOOD COUNT 6.3 10*3/uL (4.8-10.8)
[2021-02-08 08:43] LABS: THYROID STIM HORMONE (HS) 3.67 uIU/ml (0.358-4.75)
== END | disposition home or self-care (01) ==
LOC: LAB 07:22 → US 07:30
PROVIDERS: ATTEND Internal Medicine
DX: D51.9 Vitamin B12 deficiency anemia, unspecified (principal); E03.9 Hypothyroidism, unspecified; D52.9 Folate deficiency anemia, unspecified; R09.89 Other specified symptoms and signs involving the circulatory and respiratory systems; Z13.0 Encounter for screening for diseases of the blood and blood-forming organs and certain disorders involving the immune mechanism; Z13.1 Encounter for screening for diabetes mellitus; Z13.21 Encounter for screening for nutritional disorder; Z13.220 Encounter for screening for lipoid disorders; Z13.228 Encounter for screening for other metabolic disorders; Z13.6 Encounter for screening for cardiovascular disorders; Z13.89 Encounter for screening for other disorder; E78.2 Mixed hyperlipidemia; E11.9 Type 2 diabetes mellitus without complications

== ENCOUNTER → 2021-06-16 | Outpatient (CLI) | payer OTHER ==
[2021-06-16 09:38] LABS: BASO # 0.1 10*3/uL (0.0-0.1); BASO % 0.4 % (0.0-1.0); EOS # 0.1 10*3/uL (0.0-0.4); EOS % 0.5 % (1.0-4.0); HEMATOCRIT 50.4 % (42.0-52.0); LYMPH # 1.7 10*3/uL (1.3-4.4); LYMPH % 13.8 % (27.0-41.0); MEAN CELL VOLUME 93.2 fl (80.0-94.0); MEAN CORPUSCULAR HGB 31.8 pg (27.0-31.0); MEAN CORPUSCULAR HGB CONC 34.1 g/dl (33.0-37.0); MEAN PLATELET VOLUME 10.4 fl (9.6-12.3); MONO # 0.9 10*3/uL (0.1-1.0); MONO % 7.3 % (3.0-9.0); NEUT # 9.5 10*3/uL (2.3-7.9); NEUT % 77.1 % (47.0-73.0); PLATELET COUNT AUTOMATED 267 10*3/uL (130-400); RED BLOOD COUNT 5.41 10*6/uL (4.50-5.90); RED CELL DISTRI WIDTH 12.8 % (0-14.5); WHITE BLOOD COUNT 12.4 10*3/uL (4.8-10.8)
[2021-06-16 10:05] LABS: BUN 20 mg/dl (7-24); CHLORIDE 108 mmol/L (98-107); CHOLESTEROL 161 mg/dL (<200); CREATININE 1.44 mg/dL (0.70-1.30); LDL CHOLESTEROL 74 mg/dL (9-159); POTASSIUM 4.1 mmol/L (3.5-5.1); SGOT/AST 18 IU/L (3-35); SGPT/ALT 30 U/L (12-78); SODIUM 140 mmol/L (136-145); T3 UPTAKE 35 % (31-39); THYROXINE (T4) TOTAL 12.1 ug/dl (4.5-12.1); TOTAL PROTEIN 7.8 gm/dL (6.4-8.2); TRIGLYCERIDES 140 mg/dl (<150)
[2021-06-16 10:09] LABS: ALKALINE PHOSPHATASE 75 U/L (45-117)
== END | disposition home or self-care (01) ==
LOC: LAB 08:52 → MRI 09:00
PROVIDERS: ATTEND Internal Medicine
DX: I10 Essential (primary) hypertension (principal); D52.9 Folate deficiency anemia, unspecified; E11.65 Type 2 diabetes mellitus with hyperglycemia; E78.2 Mixed hyperlipidemia; E55.9 Vitamin D deficiency, unspecified; M48.062 Spinal stenosis, lumbar region with neurogenic claudication; M25.551 Pain in right hip

== ENCOUNTER → 2021-07-05 | Outpatient (CLI) | payer OTHER | END | disposition home or self-care (01) | LOC: US 10:00 | PROVIDERS: ATTEND Internal Medicine | DX: R94.4 Abnormal results of kidney function studies (principal) ==

== ENCOUNTER → 2022-03-07 | Outpatient (CLI) | payer OTHER ==
[2022-03-07 12:24] LABS: BASO % 0.6 % (0.0-1.0); EOS # 0.1 10*3/uL (0.0-0.4); EOS % 0.7 % (1.0-4.0); HEMATOCRIT 48.8 % (42.0-52.0); MEAN CELL VOLUME 95.7 fl (80.0-94.0); MEAN CORPUSCULAR HGB CONC 33.4 g/dl (33.0-37.0); MEAN PLATELET VOLUME 10.6 fl (9.6-12.3); MONO # 0.5 10*3/uL (0.1-1.0); MONO % 6.8 % (3.0-9.0); NEUT # 5.2 10*3/uL (2.3-7.9); NEUT % 76.2 % (47.0-73.0); PLATELET COUNT AUTOMATED 179 10*3/uL (130-400); RED CELL DISTRI WIDTH 13.3 % (0-14.5); WHITE BLOOD COUNT 6.9 10*3/uL (4.8-10.8)
[2022-03-07 12:34] LABS: ALKALINE PHOSPHATASE 64 U/L (46-116); BUN 15 mg/dl (9-23); CHLORIDE 105 mmol/L (98-107); CHOLESTEROL 181 mg/dL (<200); CREATININE 1.19 mg/dL (0.70-1.30); LDL CHOLESTEROL 105 mg/dL (9-159); POTASSIUM 4.3 mmol/L (3.4-5.1); SGPT/ALT 15 U/L (10-49); SODIUM 140 mmol/L (136-145); TRIGLYCERIDES 119 mg/dl (<150)
[2022-03-07 12:35] LABS: TOTAL PROTEIN 6.8 gm/dL (6.0-8.0)
[2022-03-07 12:38] LABS: FREE T4 1.43 ng/dl (0.89-1.76)
[2022-03-07 12:39] LABS: THYROID STIM HORMONE (HS) 0.685 uIU/ml (0.550-4.780)
[2022-03-07 12:58] LABS: VITAMIN D, 25-HYDROXY 37.7 ng/mL (30-100)
== END | disposition home or self-care (01) ==
LOC: LAB 11:45
PROVIDERS: ATTEND Internal Medicine
DX: I13.10 Hypertensive heart and chronic kidney disease without heart failure, with stage 1 through stage 4 chronic kidney disease, or unspecified chronic kidney disease (principal); N18.30 Chronic kidney disease, stage 3 unspecified; I25.10 Atherosclerotic heart disease of native coronary artery without angina pectoris; R73.9 Hyperglycemia, unspecified

== ENCOUNTER → 2022-09-19 | Outpatient (CLI) | payer OTHER | END | disposition home or self-care (01) | LOC: CARD 07:16 | PROVIDERS: ATTEND Internal Medicine | DX: I11.9 Hypertensive heart disease without heart failure (principal); I48.21 Permanent atrial fibrillation; I25.10 Atherosclerotic heart disease of native coronary artery without angina pectoris ==

== ENCOUNTER → 2023-01-11 | Outpatient (CLI) | payer OTHER ==
[~2023-01-11] MED LIST changes: +AMIODARONE HYD200 MG PO; +CETIRIZINE10 MG PO; +ELIQUIS5 M1 PO; +ENTRESTO 24 MG1 EACH PO; +LEVOTHYROXINE75 MC1 PO; +NATURE'S BLEND F1 MG PO; +TOPROL XL25 MG PO; +TRAD5TAB1 PO; +VITAMIN D325 MCG PO
== END | disposition home or self-care (01) ==
LOC: CARD 00:02
PROVIDERS: ATTEND Internal Medicine
DX: I25.10 Atherosclerotic heart disease of native coronary artery without angina pectoris (principal); I51.7 Cardiomegaly

== ENCOUNTER → 2023-04-17 | Outpatient (CLI) | payer OTHER | END | disposition home or self-care (01) | LOC: RAD 14:01 | PROVIDERS: ATTEND Internal Medicine | DX: J98.4 Other disorders of lung (principal); R06.02 Shortness of breath; R07.9 Chest pain, unspecified; M79.89 Other specified soft tissue disorders ==

== ENCOUNTER → 2024-04-30 | Outpatient (CLI) | payer OTHER ==
[2024-04-30 16:01] LABS: ALKALINE PHOSPHATASE 63 U/L (46-116); BUN 13 mg/dl (9-23); CHLORIDE 107 mmol/L (98-107); CHOLESTEROL 164 mg/dL (<200); FREE T4 1.74 ng/dl (0.89-1.76); LDL CHOLESTEROL 85 mg/dL (9-159); LIPASE 27 U/L (12-53); POTASSIUM 4.5 mmol/L (3.4-5.1); SGPT/ALT 15 U/L (5-49); TOTAL PROTEIN 6.5 gm/dL (6.0-8.0); TRIGLYCERIDES 163 mg/dl (<150)
== END | disposition home or self-care (01) ==
LOC: LAB 14:45
PROVIDERS: ATTEND Internal Medicine
DX: I12.9 Hypertensive chronic kidney disease with stage 1 through stage 4 chronic kidney disease, or unspecified chronic kidney disease (principal); E11.65 Type 2 diabetes mellitus with hyperglycemia; N18.31 Chronic kidney disease, stage 3a; E11.22 Type 2 diabetes mellitus with diabetic chronic kidney disease; I25.10 Atherosclerotic heart disease of native coronary artery without angina pectoris; M15.0 Primary generalized (osteo)arthritis; N43.3 Hydrocele, unspecified; R97.20 Elevated prostate specific antigen [PSA]; R53.83 Other fatigue; E53.9 Vitamin B deficiency, unspecified; E55.9 Vitamin D deficiency, unspecified